=== PATIENT | female | born 1970 | race Caucasian/White ===

== ENCOUNTER 2022-05-26 06:01 | Day surgery (SDC) | payer MEDICAID ==
[2022-05-25 09:26] LABS: COVID AG,FIA SOURCE NASAL SWAB
[~2022-05-26] VITALS: Ht 157.5 cm; Wt 84.0 kg
[~2022-05-26 06:01] MED LIST: ACET-3385 PO; ATOR20TA86 PO
[2022-05-26] MEDS ORDERED: PROPOFOL 1% 20 ML VIAL IVP ONE (06:02)
[2022-05-26] MEDS ORDERED: LIDOCAINE/PF 2% 5 ML VIAL IM ONE (06:02)
[2022-05-26] MEDS ORDERED: SODIUM CHLORIDE 0.9% 1,000 ML IV ONE (07:00)
== END 2022-05-26 08:45 | disposition home or self-care (01) ==
LOC: SURGERY 06:01
PROVIDERS: ATTEND Student in an Organized Health Care Education/Training Program
DX: R19.5 Other fecal abnormalities (principal); K63.5 Polyp of colon; K64.8 Other hemorrhoids; I12.9 Hypertensive chronic kidney disease with stage 1 through stage 4 chronic kidney disease, or unspecified chronic kidney disease; N18.9 Chronic kidney disease, unspecified; K57.80 Diverticulitis of intestine, part unspecified, with perforation and abscess without bleeding; E78.5 Hyperlipidemia, unspecified; I25.10 Atherosclerotic heart disease of native coronary artery without angina pectoris; Z20.822 Contact with and (suspected) exposure to COVID-19; Z90.710 Acquired absence of both cervix and uterus; Z82.49 Family history of ischemic heart disease and other diseases of the circulatory system
CPT/HCPCS: 45380; 87426; 88305; C9803; C1769; J2704; J3490

== ENCOUNTER 2023-02-08 20:13 | Emergency (ER) | payer MEDICAID, OTHER ==
[~2023-02-08] VITALS: Ht 157.5 cm; Wt 89.0 kg
[~2023-02-08 20:13] MED LIST changes: +ATOR20TA PO; -ATOR20TA86 PO
[2023-02-08 21:18] VITALS: TEMP 97.6
[2023-02-08 21:39] LABS: APPEARANCE,URINE CLEAR (CLEAR); BILIRUBIN,URINE NEGATIVE (NEGATIVE); COLOR,URINE COLORLESS (YELLOW); GLUCOSE, URINE (UA) NEGATIVE (NEGATIVE); KETONES,URINE NEGATIVE (NEGATIVE); LEUKOCYTE ESTERASE ,URINE TRACE (NEGATIVE); NITRATE,URINE NEGATIVE (NEGATIVE); OCCULT BLOOD,URINE NEGATIVE (NEGATIVE); PROTEIN,URINE NEGATIVE (NEGATIVE); SPECIFIC GRAVITIY, URINE 1.004 (1.003-1.030); UROBILINOGEN,URINE <=1.0 mg/dL (<=1.0)
[2023-02-08 21:55] LABS: BACTERIA,URINE None Seen /HPF (None Seen); RBC,URINE None Seen /HPF (0-2); SQUAMOUS EPITHELIAL CELL,UR Few /LPF (None Seen); WBC,URINE 0-2 /HPF (0-5)
[2023-02-08] MEDS ORDERED: METHOCARBAMOL 500 MG TABLET PO ONE (23:45)
[2023-02-08] MEDS ORDERED: KETOROLAC TROMETHAMINE 60 MG/2 ML VIAL IM ONE (23:45)
[2023-02-08] MEDS ORDERED: HYDROCODONE/ACETAMINOPHEN 5-325 MG TABLET PO ONE (23:45)
[2023-02-09] MEDS ORDERED: HYDR-4723 PO (00:50)
[2023-02-09] MEDS ORDERED: METH-659 PO (00:50)
[2023-02-09] MEDS ORDERED: IBUP-1554 PO (00:50)
[2023-02-09 00:58] VITALS: BP 135/71; PULSE 78; RESP 14
== END 2023-02-09 01:00 | disposition home or self-care (01) ==
LOC: EMS 20:14
DX: S39.012A Strain of muscle, fascia and tendon of lower back, initial encounter (principal); I10 Essential (primary) hypertension; Z90.710 Acquired absence of both cervix and uterus; W19.XXXA Unspecified fall, initial encounter; Y93.89 Activity, other specified; Y92.89 Other specified places as the place of occurrence of the external cause; Y99.8 Other external cause status
CPT/HCPCS: 99284; 81001; 96372; 72100; J1885

== ENCOUNTER 2023-11-13 11:25 | Emergency (ER) | payer OTHER ==
[~2023-11-13] VITALS: Ht 160 cm; Wt 90.9 kg
[~2023-11-13 11:25] MED LIST changes: +HYDR-4062 PO; +IBUP-1554 PO; +METH-659 PO
[2023-11-13 11:42] VITALS: TEMP 97.5
[2023-11-13 12:04] VITALS: BP 142/83; PULSE 74; RESP 16; O2SAT 98
[2023-11-13] MEDS ORDERED: IBUP-1554 PO (12:40)
[2023-11-13] MEDS ORDERED: ACET-2080 PO (12:40)
[2023-11-13] MEDS ORDERED: BACI28.410 TP (12:40)
[2023-11-13] MEDS: ACETAMINOPHEN/CODEINE 300-30 MG TABLET PO ONE (12:52)
[2023-11-13] MEDS: IBUPROFEN 600 MG TABLET PO ONE (12:52)
[2023-11-13] MEDS: BACITRACIN 0.9 GM PACKET OINTMENT TP ONE (12:52)
== END 2023-11-13 14:22 | disposition home or self-care (01) ==
LOC: EMS 11:35
DX: S61.101A Unspecified open wound of right thumb with damage to nail, initial encounter (principal); E78.00 Pure hypercholesterolemia, unspecified; I10 Essential (primary) hypertension; Z90.710 Acquired absence of both cervix and uterus
CPT/HCPCS: 11730; 11732; 99284; Z7502; Z7610

== ENCOUNTER 2024-12-12 10:52 | Emergency (ER) | payer OTHER ==
[~2024-12-12] VITALS: Ht 157.5 cm; Wt 76.8 kg
[~2024-12-12 10:52] MED LIST changes: +ACET-2080 PO; +BACI28.410 TP
[2024-12-12 10:55] VITALS: BP 137/74; PULSE 63; RESP 18; TEMP 97.5; O2SAT 100
[2024-12-12] MEDS ORDERED: IBUP-1492 PO (13:04)
[2024-12-12] MEDS: KETOROLAC TROMETHAMINE 30 MG/ML VIAL IM ONE (13:12)
== END 2024-12-12 13:30 | disposition home or self-care (01) ==
LOC: EMS 10:56
DX: M70.22 Olecranon bursitis, left elbow (principal); E78.00 Pure hypercholesterolemia, unspecified; I10 Essential (primary) hypertension; Z79.899 Other long term (current) drug therapy; Z90.710 Acquired absence of both cervix and uterus
CPT/HCPCS: 99283; 73080; 96372; J1885